=== PATIENT | male | born 2000 | race African-American/Black ===

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

== ENCOUNTER 2021-01-15 08:46 | Emergency (ER) | payer OTHER ==
[~2021-01-15] VITALS: Ht 195.6 cm; Wt 62.6 kg
[2021-01-15] MEDS ORDERED: PROAIR HFA8.5 GM INH (09:55)
[2021-01-15] MEDS ORDERED: PREDNISONE 20 M20 MG PO (09:55)
[2021-01-15 10:07] VITALS: BP 108/72
--- NOTE | 2021-01-15 10:26 | EKG ---
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 Requested By: Jeffery Vazquez Order Number: [id number] MD: Eldon Herrera Measurements Intervals [place] Rate: 71 P: 0 ME: 178 QRS: -63 QRSD: 94 T: 70 QT: 404 QTc: 439 Interpretive Statements Sinus rhythm Left anterior fascicular block RSR' in V1 or V2, probably normal variant ST elev, probable normal early repol pattern No previous ECG available for comparison Electronically Signed On 01-15-2021 10:26:26 CDT by Eldon Herrera [email or web address] <ELECTRONICALLY SIGNED> By: Eldon Herrera MD, [facility] 01/15/21 1026 0903 2 Eldon Herrera MD, FAC /EPI
== END 2021-01-15 10:08 | disposition home or self-care (01) ==
LOC: ER 08:46
DX: J45.901 Unspecified asthma with (acute) exacerbation (principal); Z91.018 Allergy to other foods; Z91.013 Allergy to seafood; Z87.891 Personal history of nicotine dependence

== ENCOUNTER 2021-01-18 04:42 | Emergency (ER) | payer OTHER ==
[~2021-01-18] VITALS: Ht 195.6 cm; Wt 62.6 kg
[2021-01-18 05:53] VITALS: BP 102/66
== END 2021-01-18 05:57 | disposition home or self-care (01) ==
LOC: ER 04:42
DX: J45.909 Unspecified asthma, uncomplicated (principal); F12.90 Cannabis use, unspecified, uncomplicated; Z87.891 Personal history of nicotine dependence; Z91.013 Allergy to seafood; Z79.899 Other long term (current) drug therapy

== ENCOUNTER 2021-02-03 08:16 | Emergency (ER) | payer OTHER ==
[~2021-02-03] VITALS: Ht 195.6 cm; Wt 62.6 kg
[2021-02-03] MEDS ORDERED: PREDNISONE 20 M20 MG PO (09:28)
[2021-02-03] MEDS ORDERED: PROAIR HFA8.5 GM INH (09:28)
[2021-02-03 09:30] VITALS: BP 117/68
== END 2021-02-03 09:33 | disposition home or self-care (01) ==
LOC: ER 08:16
DX: J45.901 Unspecified asthma with (acute) exacerbation (principal); Z87.891 Personal history of nicotine dependence; Z79.899 Other long term (current) drug therapy; Z91.013 Allergy to seafood

== ENCOUNTER 2021-02-11 11:29 | Emergency (ER) | payer OTHER ==
[~2021-02-11] VITALS: Ht 195.6 cm; Wt 63.0 kg
[2021-02-11 12:30] VITALS: BP 107/68
== END 2021-02-11 12:30 | disposition home or self-care (01) ==
LOC: ER 11:29
DX: S69.81XA Other specified injuries of right wrist, hand and finger(s), initial encounter (principal); J45.909 Unspecified asthma, uncomplicated; Z79.51 Long term (current) use of inhaled steroids; Z79.899 Other long term (current) drug therapy; Z91.013 Allergy to seafood; Z91.018 Allergy to other foods; Z87.891 Personal history of nicotine dependence; W22.01XA Walked into wall, initial encounter; Y93.89 Activity, other specified; Y92.89 Other specified places as the place of occurrence of the external cause; Y99.8 Other external cause status

== ENCOUNTER 2021-02-19 07:10 | Emergency (ER) | payer OTHER ==
[~2021-02-19] VITALS: Ht 195.6 cm; Wt 63.0 kg
[2021-02-19] MEDS ORDERED: PREDNISONE 20 M20 MG PO (07:30)
[2021-02-19] MEDS ORDERED: VENTOLIN HFA 1818 GM INH (07:30)
[2021-02-19 07:34] VITALS: BP 100/63
== END 2021-02-19 07:34 | disposition home or self-care (01) ==
LOC: ER 07:10
DX: J45.901 Unspecified asthma with (acute) exacerbation (principal); Z79.899 Other long term (current) drug therapy; Z87.891 Personal history of nicotine dependence; Z91.02 Food additives allergy status; Z91.038 Other insect allergy status

== ENCOUNTER 2021-03-14 09:06 | Emergency (ER) | payer OTHER ==
[~2021-03-14] VITALS: Ht 195.6 cm; Wt 63.0 kg
[2021-03-14 09:15] VITALS: BP 118/71
[2021-03-14] MEDS ORDERED: PROAIR HFA8.5 GM INH (10:23)
[2021-03-14] MEDS ORDERED: PREDNISONE 20 M20 MG PO (10:23)
== END 2021-03-14 10:51 | disposition home or self-care (01) ==
LOC: ER 09:06
DX: J45.901 Unspecified asthma with (acute) exacerbation (principal); Z79.51 Long term (current) use of inhaled steroids; Z79.899 Other long term (current) drug therapy; Z91.013 Allergy to seafood; Z88.8 Allergy status to other drugs, medicaments and biological substances; Z91.018 Allergy to other foods; Z87.891 Personal history of nicotine dependence

== ENCOUNTER 2021-04-20 04:37 | Emergency (ER) | payer OTHER ==
[~2021-04-20] VITALS: Ht 195.6 cm; Wt 64.4 kg
[2021-04-20 04:59] VITALS: BP 104/59
[2021-04-20] MEDS ORDERED: PREDNISONE 20 M20 MG PO (05:15)
[2021-04-20] MEDS ORDERED: PROAIR HFA8.5 GM INH (05:15)
== END 2021-04-20 05:30 | disposition home or self-care (01) ==
LOC: ER 04:37
DX: J45.901 Unspecified asthma with (acute) exacerbation (principal); Z79.899 Other long term (current) drug therapy; Z87.891 Personal history of nicotine dependence; Z91.02 Food additives allergy status; Z91.013 Allergy to seafood

== ENCOUNTER 2021-05-01 19:12 | Emergency (ER) | payer OTHER ==
[~2021-05-01] VITALS: Ht 195.6 cm; Wt 63.5 kg
[2021-05-01 19:25] VITALS: BP 124/67
== END 2021-05-01 20:04 | disposition left against medical advice (07) ==
LOC: ER 19:12
DX: J45.909 Unspecified asthma, uncomplicated (principal); Z53.21 Procedure and treatment not carried out due to patient leaving prior to being seen by health care provider

== ENCOUNTER 2021-05-04 10:49 | Emergency (ER) | payer OTHER ==
[~2021-05-04] VITALS: Ht 195.6 cm; Wt 63.5 kg
[2021-05-04 10:49] VITALS: BP 110/77
[2021-05-04] MEDS ORDERED: PREDNISONE 20 M20 MG PO (12:09)
[2021-05-04] MEDS ORDERED: PROAIR HFA8.5 GM INH (12:09)
== END 2021-05-04 12:11 | disposition home or self-care (01) ==
LOC: ER 10:49
DX: J45.21 Mild intermittent asthma with (acute) exacerbation (principal); Z20.822 Contact with and (suspected) exposure to COVID-19; F17.210 Nicotine dependence, cigarettes, uncomplicated; Z91.013 Allergy to seafood; Z91.018 Allergy to other foods

== ENCOUNTER 2021-05-27 21:10 | Emergency (ER) | payer OTHER ==
[~2021-05-27] VITALS: Ht 193 cm; Wt 63.5 kg
[2021-05-27] MEDS ORDERED: PREDNISONE 20 M20 MG PO (22:35)
[2021-05-27] MEDS ORDERED: PROAIR HFA8.5 GM INH (22:35)
[2021-05-27 23:00] VITALS: BP 120/74
== END 2021-05-27 23:00 | disposition home or self-care (01) ==
LOC: ER 21:10
DX: J45.901 Unspecified asthma with (acute) exacerbation (principal); Z79.899 Other long term (current) drug therapy; Z87.891 Personal history of nicotine dependence; Z91.02 Food additives allergy status; Z91.013 Allergy to seafood

== ENCOUNTER 2021-07-24 05:17 | Emergency (ER) | payer OTHER ==
[~2021-07-24] VITALS: Ht 195.6 cm; Wt 63.5 kg
[2021-07-24 05:22] VITALS: BP 110/61
[2021-07-24] MEDS ORDERED: PREDNISONE 10 M10 MG PO (06:13)
[2021-07-24] MEDS ORDERED: PROAIR HFA8.5 GM INH (06:13)
== END 2021-07-24 06:57 | disposition home or self-care (01) ==
LOC: ER 05:17
DX: J45.901 Unspecified asthma with (acute) exacerbation (principal); Z79.51 Long term (current) use of inhaled steroids; Z79.899 Other long term (current) drug therapy; Z91.013 Allergy to seafood; Z91.018 Allergy to other foods; Z87.891 Personal history of nicotine dependence

== ENCOUNTER 2021-09-03 01:15 | Emergency (ER) | payer OTHER ==
[~2021-09-03] VITALS: Ht 195.6 cm; Wt 62.6 kg
[2021-09-03] MEDS ORDERED: PREDNISONE 20 M20 MG PO (02:52)
[2021-09-03] MEDS ORDERED: PROAIR HFA8.5 GM INH (02:52)
[2021-09-03 03:17] VITALS: BP 132/68
--- NOTE | 2021-09-03 08:16 | EKG ---
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[place] : 2000 Requested By: Jeffery Vazquez Order Number: [id number] MD: Denton Velázquez Measurements Intervals [place] Rate: 51 P: 40 DC: 170 QRS: -25 QRSD: 101 T: 63 QT: 441 QTc: 407 Interpretive Statements Sinus bradycardia Borderline left axis deviation RSR' in V1 or V2, probably normal variant Compared to ECG 01/15/2021 09:03:44 No significant change was found Electronically Signed On 09-03-2021 8:16:16 [employer]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
== END 2021-09-03 03:17 | disposition home or self-care (01) ==
LOC: ER 01:15
PROVIDERS: Emergency Medicine
DX: J45.901 Unspecified asthma with (acute) exacerbation (principal); Z20.822 Contact with and (suspected) exposure to COVID-19; Z79.899 Other long term (current) drug therapy; Z87.891 Personal history of nicotine dependence; Z91.02 Food additives allergy status; Z91.013 Allergy to seafood